=== PATIENT | female | born 1945 | race Caucasian/White ===

== ENCOUNTER 2016-07-29 19:20 | Emergency (ER) | payer MEDICARE, OTHER ==
[2016-07-29] MEDS ORDERED: Aspirin 81 MG Tab.Chew PO ONE (19:25)
--- NOTE | 2016-07-29 19:57 | EDM.PDOC ---
ED HPI GENERAL MEDICAL PROBLEM - General Chief Complaint: Abdominal Pain Stated Complaint: Epigastric abdominal pain Time Seen by Provider: 07/29/16 19:30 Source of Information: Reports: Patient History Limitations: Reports: No Limitations - History of Present Illness INITIAL COMMENTS - FREE TEXT/NARRATIVE: patient started having epigastric and ruq abdominal pain about 4 pm. denies nausea or diarrhea. was exposed to children with gastroenteritis several days ago Onset: Today, Sudden Onset Date: 07/29/16 Onset Time: 16:00 Duration: Hour(s):, Intermittent, Waxing/Waning Location: Reports: Abdomen, Other (epigatric and right upper quadrant area) Quality: Reports: Ache, Throbbing Severity: Moderate Improves with: Reports: None Worsens with: Reports: None Associated Symptoms: Reports: No Other Symptoms - Related Data Allergies Allergy/AdvReac Type Severity Reaction Status Date / Time Penicillins Allergy Hives Verified 07/29/16 19:47 Home Meds: Home Meds Aspirin [Aspirin EC] 325 mg PO DAILY 04/19/13 [History] Calcium Carbonate [Calcium] 500 mg PO DAILY 04/19/13 [History] Cholecalciferol (Vitamin D3) [Vitamin D3] 2,000 unit PO BID 04/19/13 [History] Ferrous Sulfate 325 mg PO DAILY 04/19/13 [History] Levothyroxine [Levothroid] 75 mcg PO DAILY 04/19/13 [History] Multivitamin [Multivitamins] 1 tab PO DAILY 04/19/13 [History] Nitroglycerin [Nitrostat] 0.4 mg SL Q5M PRN #30 tab.sl 04/19/13 [Rx] Tolterodine Tartrate [Detrol LA] 4 mg PO DAILY 04/19/13 [History] Furosemide [Furosemide] 2 tab PO DAILY 11/19/14 [History] Omeprazole [Omeprazole] 20 mg PO DAILY 11/19/14 [History] Potassium Chloride [Klor-Con 10] 10 meq PO DAILY 11/19/14 [History] Acetaminophen/oxyCODONE [Percocet 325-5 MG] 1 tab PO Q4H PRN 04/11/15 [History] Past Medical History Cardiovascular History: Reports: Angina, Blood Clots/VTE/DVT, CAD, Hypertension , MD Other Cardiovascular History: MD 2012 - Past Surgical History Cardiovascular Surgical History: Reports: Coronary Artery Stent Social & Family History - Tobacco Use Smoking Status *Q: Never Smoker ED ROS GENERAL - Review of Systems Review Of Systems: See Below Constitutional: Reports: No Symptoms. Denies: Fever, Chills, Weakness HEENT: Reports: No Symptoms Respiratory: Reports: No Symptoms. Denies: Shortness of Breath, Wheezing, Pleuritic Chest Pain, Cough, Sputum Cardiovascular: Reports: Other (tender with palpation in epigastric and ruq area ). Denies: Dyspnea on Exertion, Edema, Lightheadedness Endocrine: Reports: No Symptoms GI/Abdominal: Reports: Abdominal Pain. Denies: Black Stool, Bloody Stool, Constipation, Diarrhea, Decreased Appetite, Distension, Flatus, Hematemesis, Hematochezia, Melena, Nausea, Vomiting : Reports: No Symptoms Musculoskeletal: Reports: No Symptoms Skin: Reports: No Symptoms Neurological: Reports: No Symptoms Psychiatric: Reports: No Symptoms Hematologic/Lymphatic: Reports: No Symptoms Immunologic: Reports: No Symptoms ED EXAM, GI/ABD - Physical Exam Exam: See Below Exam Limited By: No Limitations General Appearance: Alert, WD/WN, No Apparent Distress Eyes: Bilateral: Normal Appearance, EOMI Ears: Normal External Exam, Normal Canal, Normal TMs Nose: Normal Inspection, Normal Mucosa Throat/Mouth: Normal Inspection, Normal Lips, Normal Teeth, Normal Oropharynx Head: Atraumatic, Normocephalic Neck: Normal Inspection, Supple, Non-Tender Respiratory/Chest: No Respiratory Distress, Lungs Clear, Normal Breath Sounds, No Accessory Muscle Use, Chest Non-Tender Cardiovascular: Normal Peripheral Pulses, Regular Rate, Rhythm, No Edema, No Gallop, No JVD, No Murmur, No Rub GI/Abdominal: Normal Bowel Sounds, Soft, No Organomegaly, No Distention, No Mass , Other (tender with palpation in RUQ and epigastric area) Back Exam: Normal Inspection, Full Range of Motion Extremities: Normal Inspection, Normal Range of Motion, Non-Tender, No Pedal Edema Neurological: Alert, Oriented, CN II-XII Intact, Normal Cognition, Normal Gait Psychiatric: Normal Affect, Normal Mood Skin Exam: Warm, Dry, Intact, Normal Color Lymphatic: No Adenopathy EKG INTERPRETATION EKG Date: 07/29/16 Time: 19:25 Rhythm: NSR Rate (beats/min): 75 [place]: normal P-wave: present QRS: other (low voltage qrs) ST-T: normal QT: normal Comparison: NA - no prior EKG EKG Interpretation Comments: NSR with low voltage QRS with poor R wave progression no ST changes or Q waves noted, no previous available to compare to Course - Vital Signs Text/Narrative:: Patient seen and evaluated and diagnostics done. Labs and radiology tests and EKG results reviewed with patient. HGB 10.9 but patient stated she just gave two units of blood two weeks ago. No acute cause found for discomfort. Cardiac enzymes and EKG showed no acute change. strongly suspect gastrointestinal source for discomfort but no acute cause found on CT to explain. Patient condition remained stable in ER. She wants to go home which i think is ok as long as she follows up with her PCP tomorrow for further evaluation and returns to ER if symptoms change or worsen or if she develops new symptoms. Her friend will be staying with her tonight so she wont be alone - Orders/Labs/Meds Orders: Active Orders 24 hr Category Date Time Status Abdomen Pelvis w Cont [CT] Stat Exams 07/29/16 19:54 Taken Labs: Laboratory Tests 07/29/16 07/29/16 Range/Units 20:00 20:00 WBC 7.9 (4.0-10.0) x10^3/uL RBC 3.44 L (4.00-5.50) x10^6/uL Hgb 10.7 L (12.0-16.0) g/dL Hct 32.6 L (33.0-47.0) % MCV 94.8 H (78.0-93.0) fL MCH 31.1 (26.0-32.0) pg MCHC 32.8 (32.0-36.0) g/dL RDW Coeff of Vika 15.1 H (10.0-15.0) % Plt Count 307 (130-400) x10^3/uL Neut % (Auto) 61.1 (50.0-80.0) % Lymph % (Auto) 29.5 (25.0-50.0) % Dane % (Auto) 5.8 (2.0-11.0) % Eos % (Auto) 3.2 (0.0-4.0) % Baso % (Auto) 0.4 (0.2-1.2) % Sodium 142 (136-145) mmol/L Potassium 3.5 (3.5-5.1) mmol/L Chloride 102 (98-107) mmol/L Carbon Dioxide 31 (21-32) mmol/L BUN 21 H (7-18) mg/dL Creatinine 1.0 (0.55-1.02) mg/dL Est Cr Clr Drug Dosing TNP Estimated GFR (MDRD) 55 Glucose 123 H (74-106) mg/dL Calcium 9.6 (8.5-10.1) mg/dL Corrected Calcium 9.76 (8.5-10.1) mg/dL Total Bilirubin 0.4 (0.2-1.0) mg/dL AST 20 (15-37) U/L ALT 29 (14-59) U/L Alkaline Phosphatase 80 (46-116) U/L Creatine Kinase 70 (26-192) U/L Troponin I < 0.017 (<=0.056) ng/mL Total Protein 7.7 (6.4-8.2) g/dL Albumin 3.8 (3.4-5.0) g/dL Globulin 3.9 Albumin/Globulin Ratio 0.97 Amylase 56 (25-115) U/L Lipase 86 (73-393) U/L Meds: Medications Discontinued Medications Generic Name Dose Route Start Last Admin Trade Name Byron PRN Reason Stop Dose Admin Ketorolac Tromethamine 15 mg 07/29/16 23:19 Toradol IVPUSH 07/29/16 23:20 ONETIME ONE Ondansetron HCl 4 mg 07/29/16 23:18 Zofran IM 07/29/16 23:19 ONETIME ONE - Radiology Interpretation Free Text/Narrative:: CT report showed no acute findings per radiology CT Results Date: 07/29/16 (see radiiology report for further details) - Re-Assessments/Exams Free Text/Narrative Re-Assessment/Exam: 07/30/16 01:16 Patient given 15 mg toradol IV and 4 mg zofran IV per her request prior to discharge Departure - Departure Time of Disposition: 01:00 Disposition: Home, Self-Care 01 Condition: good Clinical Impression: Epigastric abdominal pain - Discharge Information Instructions: Abdominal Pain, Adult, [id number] Referrals: Rosita Nagel MD [Primary Care Provider] - Forms: ED Department Discharge Additional Instructions: Go see your regular doctor tomorrow for further evaluation and treatment Return to ER if symptoms change or worsen or you develop more severe pain or vomiting or diarrhea - My Orders Last 24 Hours: My Active Orders 07/29/16 19:54 Abdomen Pelvis w Cont [CT] Stat - Assessment/Plan Last 24 Hours: My Active Orders 07/29/16 19:54 Abdomen Pelvis w Cont [CT] Stat
[2016-07-29 20:39] LABS: CHLORIDE,CL 102 mmol/L (98-107); SODIUM,NA 142 mmol/L (136-145)
[2016-07-29] MEDS ORDERED: Ondansetron 4 MG/2 ML SDV IM ONE (23:18)
[2016-07-29] MEDS ORDERED: Ondansetron 4 MG/2 ML SDV IVPUSH ONE (23:18)
[2016-07-29] MEDS ORDERED: Ketorolac 15 MG/ML SDV IVPUSH ONE (23:19)
[2016-07-30 07:15] VITALS: BP 140/66
== END 2016-07-29 23:47 | disposition home or self-care (01) ==
LOC: VM.ED 19:20
DX: R10.13 Epigastric pain (principal); I25.10 Atherosclerotic heart disease of native coronary artery without angina pectoris; I25.2 Old myocardial infarction; I10 Essential (primary) hypertension; Z95.5 Presence of coronary angioplasty implant and graft; Z88.0 Allergy status to penicillin; Z79.82 Long term (current) use of aspirin; Z79.899 Other long term (current) drug therapy
CPT/HCPCS: 36415; 74177; 80053; 82150; 82550; 83690; 84484; 85025; 93005; 96374; 96375; 99284; A9270; J1885; J2405

== ENCOUNTER 2016-11-14 06:47 | Day surgery (SDC) | payer MEDICARE, OTHER ==
[2016-11-14] MEDS ORDERED: Lactated Ringers 1,000 ML IV SCH (07:00)
[2016-11-14] MEDS ORDERED: fentaNYL 100 MCG/2 ML SDV ONE (08:27)
[2016-11-14] MEDS ORDERED: Propofol 200 MG/20 ML SDV ONE (08:27)
[2016-11-14] MEDS ORDERED: Ondansetron 4 MG/2 ML SDV ONE (08:50)
[2016-11-14 10:17] VITALS: BP 94/49
--- NOTE | 2016-11-14 13:15 | OR ---
DATE OF SURGERY: 11/14/2016. REFERRING PROVIDER: Rosita Nagel MD. PREOPERATIVE DIAGNOSIS: Screening colonoscopy given her previous history of colon polyps. Last colonoscopy 2011. POSTOPERATIVE DIAGNOSIS: Moderate diverticulosis on the left side, otherwise normal colon. PROCEDURE: Colonoscopy. SURGEON: Ted Mccarty MD. ANESTHESIA: Monitored anesthesia care. BOWEL PREP: Good. Svitlana is a 71-year-old female was brought to the endoscopy suite after discussing risks and benefits of the procedure. Informed consent was obtained for conscious sedation and colonoscopy with or without biopsy and/or polypectomy. We also discussed possibility of missed lesions. Pre-procedure exam was unremarkable. IV, oxygen, and monitors were placed. The patient was placed in the left lateral decubitus position. Sedation was administered and a digital rectal exam was performed which was unremarkable. Colonoscope was passed into the rectum and slowly advanced all the way to the cecum. Cecum was viewed and photographed. The colonoscope was slowly withdrawn and the mucosa was closed observed in a direct circumferential manner. The ascending colon was unremarkable. The transverse colon was unremarkable. The descending colon was remarkable for some moderate diverticulosis. The sigmoid colon was remarkable for some moderate diverticulosis. Retroflexion was performed and rectal mucosa was unremarkable. Scope was removed. The patient tolerated the procedure well. The patient was monitored until that baseline status. Discharge instructions were reviewed and the patient was discharged in good condition. COMPLICATIONS: The patient did experience some hypoxia during the procedure which was managed by the CARDIAC CARE UNIT NURSE and resolved. TOTAL TIME: 16 minutes. ESTIMATED BLOOD LOSS: None. RECOMMENDATIONS/FOLLOWUP: Recommend repeat colonoscopy in 5 years given the patient's previous history of colon polyps. I would like to kindly thank Dr. Nagel for this referral. DMB: 11/14/2016 09:25:25 MODL: 11/14/2016 12:54:14 /[id number]
== END 2016-11-14 10:35 | disposition home or self-care (01) ==
LOC: VM.SDS 06:47
PROVIDERS: ATTEND Family Medicine
DX: Z12.11 Encounter for screening for malignant neoplasm of colon (principal); K57.30 Diverticulosis of large intestine without perforation or abscess without bleeding; Z86.010 Personal history of colon polyps; I25.10 Atherosclerotic heart disease of native coronary artery without angina pectoris; E78.5 Hyperlipidemia, unspecified; E03.9 Hypothyroidism, unspecified; R73.9 Hyperglycemia, unspecified; E55.9 Vitamin D deficiency, unspecified; E66.9 Obesity, unspecified; Z79.82 Long term (current) use of aspirin; Z79.899 Other long term (current) drug therapy; I21.4 Non-ST elevation (NSTEMI) myocardial infarction; Z79.01 Long term (current) use of anticoagulants; Z68.30 Body mass index [BMI] 30.0-30.9, adult; Z90.49 Acquired absence of other specified parts of digestive tract; Z98.890 Other specified postprocedural states
CPT/HCPCS: 00810; G0105; J2405; J2704; J3010; J7120

== ENCOUNTER 2017-04-17 22:18 | Emergency (ER) | payer MEDICARE, OTHER ==
--- NOTE | 2017-04-17 23:18 | EDM.PDOC ---
ED HPI GENERAL MEDICAL PROBLEM - General Chief Complaint: General Stated Complaint: Left upper chest wall pain Time Seen by Provider: 04/17/17 22:18 Source of Information: Reports: Patient, Old Records, RN, RN Notes Reviewed History Limitations: Reports: No Limitations - History of Present Illness INITIAL COMMENTS - FREE TEXT/NARRATIVE: 71-year-old female patient presents emergency room at [facility] complaining of left upper chest wall discomfort. The patient is not sure when the pain started but she thinks it was within the last week. The patient states that the symptoms that she is having is similar to when she had a pulmonary embolus a couple of years ago. The patient denies any shortness of breath. The patient denies any injury or trauma that she is aware of. The patient denies any back pain. Patient denies any focal neurological deficit. The patient did have a couple of different instances of numbness and tingling of the left upper extremity. Otherwise no other concerns. Onset: Unknown/Unsure - Related Data Allergies Allergy/AdvReac Type Severity Reaction Status Date / Time Penicillins Allergy Hives Verified 11/14/16 06:58 Home Meds: Home Meds Aspirin [Aspirin EC] 325 mg PO DAILY 04/19/13 [History] Calcium Carbonate [Calcium] 500 mg PO DAILY 04/19/13 [History] Cholecalciferol (Vitamin D3) [Vitamin D3] 2,000 unit PO DAILY 04/19/13 [History] Ferrous Sulfate 325 mg PO DAILY 04/19/13 [History] Levothyroxine [Levothroid] 75 mcg PO DAILY 04/19/13 [History] Multivitamin [Multivitamins] 1 tab PO DAILY 04/19/13 [History] Nitroglycerin [Nitrostat] 0.4 mg SL Q5M PRN #30 tab.sl 04/19/13 [Rx] Tolterodine Tartrate [Detrol LA] 4 mg PO DAILY 04/19/13 [History] Furosemide [Furosemide] 1.5 tab PO DAILY 11/19/14 [History] Omeprazole [Omeprazole] 20 mg PO BID 11/19/14 [History] Potassium Chloride [Klor-Con 10] 10 meq PO DAILY 11/19/14 [History] Acetaminophen/oxyCODONE [Percocet 325-5 MG] 1 tab PO Q4H PRN 04/11/15 [History] Ibuprofen/Diphenhydramine Cit [Advil Pm Caplet] 2 each PO BEDTIME PRN 11/13/16 [ History] Metoprolol Succinate [Toprol XL] 12.5 mg PO DAILY 11/13/16 [History] [place]-3/DHA/Epa/Fish Oil [[place]-3 Fish Oil 1,000 MG Sfgl] 1 cap PO DAILY [History] atorvaSTATin [Lipitor] 1 tab PO BEDTIME 11/13/16 [History] Past Medical History HEENT History: Reports: Allergic Rhinitis, Other (See Below) Other HEENT History: impacted ceruem. ptosis of eyelid bilateral Cardiovascular History: Reports: High Cholesterol, [place], Other (See Below) Other Cardiovascular History: Valvular heart disease. Bilateral peripheral edema. NoN stemi [place] Respiratory History: Reports: PE Gastrointestinal History: Reports: Colon Polyp, Diverticulosis Other Gastrointestinal History: Rectal polyp. Dyspepsia. Epigastric hernia. Ventral hernia without obstruction Genitourinary History: Reports: Other (See Below) Other Genitourinary History: mixed incontinence Musculoskeletal History: Reports: Osteoarthritis Endocrine/Metabolic History: Reports: Hypothyroidism, Vitamin D Deficiency, Other (See Below) Other Endocrine/Metabolic History: Hyperglycemia - Past Surgical History Cardiovascular Surgical History: Reports: Varicose GI Surgical History: Reports: Cholecystectomy, Colonoscopy Musculoskeletal Surgical History: Reports: Hip Replacement, Joint Replacement, Knee Replacement, Shoulder Replacement, Shoulder Surgery Other Musculoskeletal Surgeries/Procedures:: Bilateral knee surgery. Right hip. Rotator cuff Right Social & Family History - Tobacco Use Smoking Status *Q: Never Smoker - Alcohol Use Days Per Week of Alcohol Use: 3 - Recreational Drug Use Recreational Drug Use: No ED ROS GENERAL - Review of Systems Review Of Systems: See Below Constitutional: Denies: Fever, Chills, Weakness Respiratory: Reports: Pleuritic Chest Pain. Denies: Shortness of Breath, Cough Cardiovascular: Denies: Chest Pain, Palpitations GI/Abdominal: Denies: Abdominal Pain, Nausea, Vomiting Musculoskeletal: Reports: Muscle Pain (left anterior chest wall) Skin: Reports: No Symptoms Neurological: Reports: No Symptoms. Denies: Dizziness, Headache ED EXAM, GENERAL - Physical Exam Exam: See Below Exam Limited By: No Limitations General Appearance: Alert, No Apparent Distress Neck: Supple Respiratory/Chest: No Respiratory Distress, Lungs Clear, Normal Breath Sounds, Other (left anterior chest wall pain to deep palpation; reproducible) Cardiovascular: Normal Peripheral Pulses, Regular Rate, Rhythm Peripheral Pulses: 2+: Radial (L), Radial (R) GI/Abdominal: Normal Bowel Sounds, Soft, Non-Tender Neurological: Alert, Oriented Skin Exam: Warm, Dry, Intact, Normal Color, No Rash Course - Orders/Labs/Meds Orders: Active Orders 24 hr Category Date Time Status EKG 12 Lead [EKG Documentation Completion] [RC] STAT Care 04/17/17 22:32 Active Chest PE [Ang Chest] [CT] Stat Exams 04/17/17 23:41 Taken Labs: Laboratory Tests 04/17/17 04/17/17 04/17/17 Range/Units 22:58 22:58 22:58 WBC 4.7 (4.0-10.0) x10^3/uL RBC 3.32 L (4.00-5.50) x10^6/uL Hgb 10.2 L (12.0-16.0) g/dL Hct 30.9 L (33.0-47.0) % MCV 93.1 H (78.0-93.0) fL MCH 30.7 (26.0-32.0) pg MCHC 33.0 (32.0-36.0) g/dL RDW Coeff of Vika 13.5 (10.0-15.0) % Plt Count 232 D (130-400) x10^3/uL Neut % (Auto) 43.3 L (50.0-80.0) % Lymph % (Auto) 44.5 (25.0-50.0) % Josephine % (Auto) 8.4 (2.0-11.0) % Eos % (Auto) 3.6 (0.0-4.0) % Baso % (Auto) 0.2 (0.2-1.2) % PT 10.3 (9.8-11.8) SEC INR 1.0 L (2.0-3.5) D-Dimer, Quantitative 0.56 (<=0.58) mg/LFEU Sodium 145 (136-145) mmol/L Potassium 3.2 L (3.5-5.1) mmol/L Chloride 105 (98-107) mmol/L Carbon Dioxide 32 (21-32) mmol/L BUN 25 H (7-18) mg/dL Creatinine 0.9 (0.55-1.02) mg/dL Est Cr Clr Drug Dosing TNP Estimated GFR (MDRD) > 60 Glucose 109 H (74-106) mg/dL Calcium 9.1 (8.5-10.1) mg/dL Corrected Calcium 9.66 (8.5-10.1) mg/dL Total Bilirubin 0.3 (0.2-1.0) mg/dL AST 17 (15-37) U/L ALT 21 (14-59) U/L Alkaline Phosphatase 77 (46-116) U/L Creatine Kinase 79 (26-192) U/L Creatine Kinase Index TNP CK-MB (CK-2) TNP POC Troponin I (0.00-0.08) ng/mL Total Protein 6.3 L (6.4-8.2) g/dL Albumin 3.3 L (3.4-5.0) g/dL Globulin 3.0 Albumin/Globulin Ratio 1.10 04/17/17 Range/Units 23:04 WBC (4.0-10.0) x10^3/uL RBC (4.00-5.50) x10^6/uL Hgb (12.0-16.0) g/dL Hct (33.0-47.0) % MCV (78.0-93.0) fL MCH (26.0-32.0) pg MCHC (32.0-36.0) g/dL RDW Coeff of Vika (10.0-15.0) % Plt Count (130-400) x10^3/uL Neut % (Auto) (50.0-80.0) % Lymph % (Auto) (25.0-50.0) % Josephine % (Auto) (2.0-11.0) % Eos % (Auto) (0.0-4.0) % Baso % (Auto) (0.2-1.2) % PT (9.8-11.8) SEC INR (2.0-3.5) D-Dimer, Quantitative (<=0.58) mg/LFEU Sodium (136-145) mmol/L Potassium (3.5-5.1) mmol/L Chloride (98-107) mmol/L Carbon Dioxide (21-32) mmol/L BUN (7-18) mg/dL Creatinine (0.55-1.02) mg/dL Est Cr Clr Drug Dosing Estimated GFR (MDRD) Glucose (74-106) mg/dL Calcium (8.5-10.1) mg/dL Corrected Calcium (8.5-10.1) mg/dL Total Bilirubin (0.2-1.0) mg/dL AST (15-37) U/L ALT (14-59) U/L Alkaline Phosphatase (46-116) U/L Creatine Kinase (26-192) U/L Creatine Kinase Index CK-MB (CK-2) POC Troponin I 0.00 (0.00-0.08) ng/mL Total Protein (6.4-8.2) g/dL Albumin (3.4-5.0) g/dL Globulin Albumin/Globulin Ratio Meds: Medications Discontinued Medications Generic Name Dose Route Start Last Admin Trade Name Freq PRN Reason Stop Dose Admin Iopamidol 100 ml 04/17/17 23:57 04/17/17 23:58 Isovue-300 (61%) IVPUSH 04/17/17 23:58 100 ml ONETIME ONE Administration - Radiology Interpretation Free Text/Narrative:: CT Ang Chest: No acute findings - see scanned report in EMR CT Results Date: 04/18/17 CT Results Time: 00:12 Departure - Departure Time of Disposition: 00:35 Disposition: Home, Self-Care 01 Condition: Good Clinical Impression: Chest wall pain - Discharge Information Instructions: Chest Wall Pain, [id number] Referrals: Rosita Nagel MD [Primary Care Provider] - Forms: ED Department Discharge Additional Instructions: 1. Stay well hydrated and rest 2. May alternate Tylenol/Advil as needed 3. CT scan did not show any blood clots; blood work looked good 4. See your Primary as symptoms warrant 5. Call with any questions/concerns. - Problem List Review Problem List Initiated/Reviewed/Updated: Yes - My Orders Last 24 Hours: My Active Orders 04/17/17 22:32 EKG 12 Lead [EKG Documentation Completion] [RC] STAT 04/17/17 23:41 Chest PE [Ang Chest] [CT] Stat - Assessment/Plan Last 24 Hours: My Active Orders 04/17/17 22:32 EKG 12 Lead [EKG Documentation Completion] [RC] STAT 04/17/17 23:41 Chest PE [Ang Chest] [CT] Stat Plan: labs and CT scan were discussed with the patient. The CT scan does not show any pulmonary embolus which the patient was very concerned about. Also, the d-dimer was within normal limits. The patient will be discharged home. There is a high probability that the patient's symptoms are merely muscle spasm versus costochondritis. Discussed findings with patient. Discussed home remedies which include Tylenol and Advil heating pads, etc.
[2017-04-17 23:40] LABS: CHLORIDE,CL 105 mmol/L (98-107); SODIUM,NA 145 mmol/L (136-145)
[2017-04-17] MEDS: Iopamidol 612 MG/ML 100 ML Bottle IVPUSH ONE (23:58)
[2017-04-18 00:36] VITALS: BP 112/60
== END 2017-04-18 00:42 | disposition home or self-care (01) ==
LOC: VM.ED 22:18
DX: R07.89 Other chest pain (principal); E78.00 Pure hypercholesterolemia, unspecified; E03.9 Hypothyroidism, unspecified; Z88.0 Allergy status to penicillin; Z79.82 Long term (current) use of aspirin; Z79.899 Other long term (current) drug therapy
CPT/HCPCS: 36415; 71275; 80053; 82550; 84484; 85025; 85379; 85610; 93005; 99285; Q9967

== ENCOUNTER 2021-08-03 11:11 | Emergency (ER) | payer MEDICARE, OTHER ==
[2021-08-03 12:00] VITALS: BP 127/62; PULSE 67
[2021-08-03 12:01] LABS: CHLORIDE,CL 103 mmol/L (98-107); SODIUM,NA 143 mmol/L (136-145)
[2021-08-03 12:03] LABS: ANION GAP 15.6 mmol/L (5-15); ESTIMATED GFR 48
== END 2021-08-03 13:20 | disposition home or self-care (01) ==
LOC: VM.ED 11:11
DX: R07.89 Other chest pain (principal); E78.00 Pure hypercholesterolemia, unspecified; I25.2 Old myocardial infarction; E03.9 Hypothyroidism, unspecified; Z90.49 Acquired absence of other specified parts of digestive tract; Z79.899 Other long term (current) drug therapy; Z79.82 Long term (current) use of aspirin; Z88.0 Allergy status to penicillin
CPT/HCPCS: 71046; 80053; 82550; 83615; 84484; 85025; 85379; 86140; 93005; 93010; 99285; 99285-25

== ENCOUNTER 2022-01-21 11:43 | Emergency (ER) | payer MEDICARE, OTHER ==
[2022-01-21] MEDS ORDERED: Aspirin 81 MG Tab.Chew PO ONE (12:13)
[2022-01-21 12:42] LABS: CHLORIDE,CL 100 mmol/L (98-107); SODIUM,NA 140 mmol/L (136-145)
[2022-01-21 12:43] LABS: ANION GAP 11.2 mmol/L (5-15); ESTIMATED GFR 67 mL/min (>=60)
[2022-01-21] MEDS: Iopamidol 755 Mg/ML 100 ML Bottle IVPUSH ONE (13:45)
[2022-01-21 13:55] VITALS: BP 123/52; PULSE 59
== END 2022-01-21 14:33 | disposition home or self-care (01) ==
LOC: VM.ED 11:43
DX: S29.012A Strain of muscle and tendon of back wall of thorax, initial encounter (principal); E78.00 Pure hypercholesterolemia, unspecified; I25.2 Old myocardial infarction; M19.90 Unspecified osteoarthritis, unspecified site; E03.9 Hypothyroidism, unspecified; Z88.0 Allergy status to penicillin; Z79.82 Long term (current) use of aspirin; Z79.899 Other long term (current) drug therapy
CPT/HCPCS: 36415; 71045; 71275; 80053; 83880; 84484; 85025; 85379; 93005; 99285; Q9967; 93010

== ENCOUNTER 2022-06-24 14:33 | Emergency (ER) | payer MEDICARE, OTHER ==
[2022-06-24] MEDS ORDERED: Iopamidol 755 Mg/ML 100 ML Bottle IVPUSH ONE (15:31)
[2022-06-24 16:05] LABS: ANION GAP 14.7 mmol/L (5-15)
[2022-06-24 17:29] VITALS: PULSE 74
[2022-06-24 18:40] VITALS: BP 124/68
== END 2022-06-24 18:40 | disposition home or self-care (01) ==
LOC: VM.ED 14:33
DX: R42 Dizziness and giddiness (principal); M54.2 Cervicalgia; I25.2 Old myocardial infarction; E03.9 Hypothyroidism, unspecified; Z88.0 Allergy status to penicillin; Z79.82 Long term (current) use of aspirin; Z79.899 Other long term (current) drug therapy
CPT/HCPCS: 36415; 70496; 71046; 80053; 84484; 85025; 85610; 93005; 99284; Q9967